=== PATIENT | female | born 1995 | race Caucasian/White ===

== ENCOUNTER 2022-11-11 08:52 | Emergency (ER) | payer SELFPAY ==
[~2022-11-11] VITALS: Ht 170.2 cm; Wt 122.5 kg
[2022-11-11] MEDS ORDERED: FLUORESCEIN SOD(OPTH) 1 MG STRP OP ONE (09:15)
[2022-11-11] MEDS ORDERED: TETRACAINE HCL 0.5% OPTH SOLN 4 ML BTL OP ONE (09:15)
[2022-11-11] MEDS ORDERED: CLEOCIN HCL300 MG PO (09:20)
[2022-11-11] MEDS ORDERED: AMOX TR-K CLV1 EAC2 PO (09:21)
== END 2022-11-11 09:27 | disposition home or self-care (01) ==
LOC: ER 08:56
DX: H10.9 Unspecified conjunctivitis (principal)
CPT/HCPCS: 99282

== ENCOUNTER 2025-05-28 18:00 | Emergency (ER) | payer SELFPAY ==
[~2025-05-28] VITALS: Ht 167.6 cm; Wt 117.9 kg
[~2025-05-28 18:00] MED LIST: AMOX TR-K CLV1 EAC2 PO; CLEOCIN HCL300 MG PO
[2025-05-28 19:10] LABS: BASOPHILS % 0.4 % (0.0-1.0); EOSINOPHILS % 2.0 % (0.0-6.0); LYMPHOCYTES % 34.8 % (18.0-39.1); MONOCYTES % 6.6 % (4.4-11.3); NEUTROPHILS % 56.1 % (38.7-80.0); RED CELL DISTRIBUTION WIDTH 13.3 % (11.7-14.4)
[2025-05-28 19:19] LABS: EST GLOMERULAR FILTRATION RATE 121.0 ML/MIN (>=60)
[2025-05-28 20:52] VITALS: PULSE 78; RESP 17; TEMP 98.6
[2025-05-28] MEDS: IBUPROFEN 600 MG TAB PO STA (20:58)
[2025-05-28 21:21] VITALS: BP 120/82; PULSE 73; RESP 17; TEMP 98.7; O2SAT 99
== END 2025-05-28 20:57 | disposition home or self-care (01) ==
LOC: ER 19:03
DX: N93.8 Other specified abnormal uterine and vaginal bleeding (principal); H91.90 Unspecified hearing loss, unspecified ear
CPT/HCPCS: 36415; 80048; 84702; 85025; 99284